=== PATIENT | female | born 1970 | race African-American/Black ===

== ENCOUNTER 2025-01-29 11:33 | Emergency (ER) | payer MEDICAID ==
[~2025-01-29] VITALS: Ht 165.1 cm; Wt 138.0 kg
[2025-01-29 11:51] VITALS: O2SAT 100
[2025-01-29] MEDS: KETOROLAC 30MG/ML VIAL IM ONE (14:20)
[2025-01-29] MEDS: LIDOCAINE 5% PATCH TOP SCH (14:20)
[2025-01-29] MEDS: CYCLOBENZAPRINE 10MG TABLET PO ONE (14:20)
[2025-01-29] MEDS ORDERED: LIDO700A30 TP (15:47)
[2025-01-29] MEDS ORDERED: IBUP-2030 MT (15:47)
[2025-01-29] MEDS ORDERED: CYCL10TA21 MT (15:47)
[2025-01-29] MEDS ORDERED: TC1C15 TP (15:56)
[2025-01-29] MEDS ORDERED: LIDOCAINE 5% PATCH TOP SCH (17:00)
[2025-01-29 17:04] VITALS: TEMP 36.7; O2SAT 100
[2025-01-29 17:44] VITALS: BP 191/110; PULSE 74; RESP 17
[2025-01-29] MEDS: HYDROCODONE/ACETAMINOPHEN 10/325MG TABLET PO ONE (17:44)
== END 2025-01-29 17:48 | disposition home or self-care (01) ==
LOC: ER 11:33
DX: M71.22 Synovial cyst of popliteal space [Baker], left knee (principal); L30.9 Dermatitis, unspecified; I10 Essential (primary) hypertension; Z79.899 Other long term (current) drug therapy; Z98.890 Other specified postprocedural states
CPT/HCPCS: 93971; 73560; 96372; 99285; J1885; Z7610